=== PATIENT | female | born 2000 | race Native Hawaiian/Other Pacific Islander ===

== ENCOUNTER 2019-10-10 09:54 | Emergency (ER) | payer OTHER ==
[~2019-10-10] VITALS: Ht 157.5 cm; Wt 90.7 kg
[2019-10-10 10:03] VITALS: TEMP 98
[2019-10-10 11:02] LABS: PLATELET COUNT 302 K/uL (152-353)
[2019-10-10 11:07] LABS: POTASSIUM 3.8 mmol/L (3.6-5.2)
[2019-10-10 14:59] VITALS: BP 121/68
== END 2019-10-10 15:02 | disposition home or self-care (01) ==
LOC: ED 09:54
PROVIDERS: Emergency Medicine
DX: R10.31 Right lower quadrant pain (principal)
CPT/HCPCS: 36415; 80053; 81000; 81025; 82150; 83690; 85027; 96374; 99284; J2405; Q9963